=== PATIENT | male | born 1960 | race Caucasian/White ===

== ENCOUNTER 2023-11-09 06:15 | Day surgery (SDC) | payer BC ==
[~2023-11-09] VITALS: Ht 185.4 cm; Wt 111.6 kg
[2023-11-09 06:00] VITALS: BP 154/92; PULSE 73; TEMP 97.7
[~2023-11-09 06:15] MED LIST: LR 1,000 ML IV SCH
[2023-11-09] MEDS ORDERED: MOBIC15 MG PO (06:38)
[2023-11-09] MEDS ORDERED: FLOMAX 0.40.4 MG/CAP PO (06:38)
[2023-11-09] MEDS ORDERED: CRESTOR 10MG10 MG (06:39)
[2023-11-09] MEDS ORDERED: HCTZ12.5TAB (06:40)
[2023-11-09] MEDS ORDERED: TORADOL 10MG TA10 MG (06:40)
[2023-11-09] MEDS ORDERED: HYDROmorphone 2 MG/1 ML VIAL IV PRN (07:30)
[2023-11-09] MEDS ORDERED: Ondansetron 4 MG/2 ML VIAL IV PRN ×3 (07:30→09:15)
[2023-11-09] MEDS ORDERED: droPERidol 2.5 MG/ML 2 ML VIAL IV PRN (07:30)
[2023-11-09] MEDS ORDERED: hydrALAZINE 20 MG/ML 1 ML VIAL IV PRN (07:30)
[2023-11-09] MEDS ORDERED: fentaNYL 50 MCG/ML 2 ML VIAL IV PRN (07:30)
--- NOTE | 2023-11-09 07:31 | NUR ---
PT TO SURGERY PER BED WITH [facility] COMMUNICABLE DISEASE SPECIALIST AT THIS TIME. CONSENT SINGED ON CHART.
[2023-11-09] MEDS ORDERED: NS 10 ML IV ONE (07:34)
[2023-11-09] MEDS ORDERED: Ondansetron 4 MG/2 ML VIAL ONE (07:34)
[2023-11-09] MEDS ORDERED: Lidocaine PF 2% (20 MG/ML) 5 ML VIAL ONE (07:34)
[2023-11-09] MEDS ORDERED: fentaNYL 50 MCG/ML 2 ML VIAL ONE (07:34)
[2023-11-09] MEDS ORDERED: dexAMETHasone 10 MG/ML VIAL ONE (07:34)
[2023-11-09] MEDS ORDERED: Iohexol 300 - 10 ML VIAL URETER -L ONE (08:10)
[2023-11-09] MEDS ORDERED: Lidocaine 2% (20 MG/ML) 20 ML UROJET UR ONE (08:40)
[2023-11-09] MEDS ORDERED: hydrALAZINE 20 MG/ML 1 ML VIAL IV ONE ×2 (08:55→09:00)
--- NOTE | 2023-11-09 08:58 | NUR ---
PT STILL IN OR.
[2023-11-09] MEDS ORDERED: oxyCODONE 5 MG TAB PO PRN ×2 (09:00→09:15)
[2023-11-09] MEDS ORDERED: Hyoscyamine 0.125 MG Sublingual TAB SL PRN ×2 (09:00→09:15)
[2023-11-09] MEDS ORDERED: Naloxone 0.4 MG/ML VIAL IV PRN ×2 (09:00→09:15)
[2023-11-09] MEDS ORDERED: Acetaminophen 325 MG TAB PO PRN ×2 (09:00→09:15)
[2023-11-09] MEDS ORDERED: NORCO 325 MG-51 TAB PO (09:02)
[2023-11-09] MEDS ORDERED: PYRIDIUM 100MG100 MG PO (09:02)
[2023-11-09 09:30] VITALS: BP 141/80; PULSE 81; TEMP 97.2
[2023-11-09 09:45] VITALS: BP 140/81; PULSE 79; TEMP 98
--- NOTE | 2023-11-09 09:49 | NUR ---
PT TO ROOM 348 PER BED WITH REPORT FROM [facility] PACU @1218 PT IS A/O X4, LUNGST CTA, VOIDED ON ARRIVAL AND X1 MORE. VSS, PLAN ON DISCHARGE HOME LATER TODAY.
[2023-11-09] MEDS ORDERED: Acetaminophen 500 MG TAB PO SCH ×2 (09:59)
[2023-11-09 10:00] VITALS: BP 144/82; PULSE 78; TEMP 98.1
[2023-11-09 10:23] VITALS: BP 134/79; PULSE 79; TEMP 98.1
[2023-11-09 10:45] VITALS: BP 144/82; PULSE 78; TEMP 98
--- NOTE | 2023-11-09 12:04 | NUR ---
Data: Preschool Head Teacher visit attempted during Preschool Head Teacher rounds. Assessment: RN was in room with Patient. Plan of Care: Chaplains will remain available as needed/request while Patient is admitted to this hospital.
--- NOTE | 2023-11-09 12:09 | NUR ---
DISCHARGE CRITERIA MET. DISCHARGE INSTRUCTIONS REVIEWED WITH PT AND SPOUSE. QUESTIONS SOLICITED AND ANSWERED. PT LEFT AMBULATORY WITH STAFF.
== END 2023-11-09 12:11 | disposition home or self-care (01) ==
LOC: SURG 06:15 → SDCO 06:15 → EDSTATUS 08:00 → SDCO 12:11
DX: N20.1 Calculus of ureter (principal); Z87.891 Personal history of nicotine dependence
CPT/HCPCS: OP; C1769; C2617; J0360; J0690; J1100; J2405; J2704; J3010; J7120; Q9967